=== PATIENT | male | born 1990 | race Asian ===

== ENCOUNTER 2020-12-15 10:49 | Outpatient (CLI) | payer OTHER | END 2020-12-15 10:50 | disposition home or self-care (01) | LOC: CSHMRI 10:49 | PROVIDERS: ATTEND Family Medicine | DX: M23.300 Other meniscus derangements, unspecified lateral meniscus, right knee (principal); S83.421A Sprain of lateral collateral ligament of right knee, initial encounter; R60.0 Localized edema ==